=== PATIENT | male | born 1935 | race Two or more races ===

== ENCOUNTER 2019-05-14 22:17 | Inpatient (IN) | payer MEDICARE ==
[~2019-05-14] VITALS: Ht 177.8 cm; Wt 47.6 kg
--- NOTE | 2019-05-14 22:35 | NUR ---
ALISON RA .C/O "DESATTING AT SNF" PT NOTED DNR. FAMILY AT BEDSIDE. VSS AT THIS TIME.
[2019-05-14 22:56] LABS: BASOPHILS # (AUTO) 0.1 /CMM (0.0-0.2); BASOPHILS % (AUTO) 0.8 % (0.0-2.0); EOSINOPHILS % (AUTO) 0.2 % (0.0-6.0); HEMATOCRIT 25 % (39-51); HEMOGLOBIN 8.1 g/dL (13.5-17.5); LYMPHOCYTES # (AUTO) 0.5 /CMM (0.8-4.8); LYMPHOCYTES % (AUTO) 3.1 % (20.0-44.0); MEAN CORPUSCULAR HGB CONC 33 g/dl (31.0-36.0); MEAN CORPUSCULAR VOLUME 87 fL (80-96); MONOCYTES # (AUTO) 0.9 /CMM (0.1-1.30); MONOCYTES % (AUTO) 6.1 % (2.0-12.0); NEUTROPHILS # (AUTO) 13.8 /CMM (1.8-8.9); NEUTROPHILS % (AUTO) 89.8 % (43.0-81.0); PLATELET COUNT (AUTO) 639 /CMM (150-450); RED BLOOD CELL COUNT(AUTO) 2.84 MIL/uL (4.5-6.0); WHITE BLOOD COUNT (AUTO) 15.4 K/uL (4.3-11.0)
[2019-05-14] MEDS ORDERED: ASPIRIN 81 MG TAB.CHEW PO ONE (23:00)
[2019-05-14] MEDS ORDERED: FUROSEMIDE 20 MG/2 ML VIAL IV ONE (23:00)
[2019-05-14] MEDS ORDERED: NTG 50 MG/D5W250 ML BOTTL 250 ML IV ONE ×2 (23:00→23:09)
[2019-05-14] MEDS ORDERED: OLANZAPINE 10 MG VIAL IM ONE ×2 (23:00→23:09)
[2019-05-14] MEDS ORDERED: IV NS 0.9% 1,000 ML BAG IV ONE (23:00)
[2019-05-14 23:07] LABS: CALCIUM, SERUM 8.8 mg/dL (8.5-10.1); CARBON DIOXIDE 25 mmol/L (21-32); CHLORIDE 106 mmol/L (98-107); CREATININE 1.9 mg/dL (0.6-1.3); GLUCOSE 152 mg/dL (74-106); SODIUM SERUM 141 mmol/L (136-145); UREA NITROGEN, BLOOD 24 mg/dL (7-18)
[2019-05-14] MEDS ORDERED: ASPIRIN EC 81 MG TABLET.DR PO ONE (23:09)
[2019-05-14] MEDS ORDERED: FUROSEMIDE 20 MG/2 ML VIAL ONE (23:09)
[2019-05-14 23:29] LABS: ALANINE AMINOTRANSFERASE 25 U/L (12-78); ALBUMIN 2.7 g/dL (3.4-5.0); ALKALINE PHOSPHATASE 92 U/L (46-116); ASPARTATE AMINOTRANSFERASE 30 U/L (15-37); B-TYPE NATRIURETIC PEPTIDE 14645 PG/ML (0-125); BILIRUBIN,DIRECT 0.1 mg/dL (0.0-0.2); BILIRUBIN,TOTAL 0.3 mg/dL (0.2-1.0); TOTAL PROTEIN, SERUM 6.7 g/dL (6.4-8.2)
[2019-05-14 23:49] LABS: D-DIMER 10.34 mg/L(FEU (0.17-0.50)
--- NOTE | 2019-05-15 | NUR ---
BLADDER IRRIGATED W/NORMAL SALINE PER ORDER. INITIAL IRRIGATION YIELD DARK RED DRAINAGE. AFTER ANOTHER 240ML. YIELD BRIGHT PINK. AWARE.
[2019-05-15] MEDS ORDERED: ONDANSETRON HCL/PF 4 MG/2 ML VIAL IVP PRN (00:30)
[2019-05-15] MEDS ORDERED: MAGNESIUM HYDROXIDE 30 ML UDC PO PRN ×2 (00:30→11:00)
[2019-05-15] MEDS ORDERED: MAG HYDROX/AL HYDROX/SIMETH 30 ML UDC PO PRN (00:30)
[2019-05-15] MEDS ORDERED: Z GUARD REMEDY 2 OZ OINT TP PRN (00:30)
[2019-05-15] MEDS ORDERED: ACETAMINOPHEN 325 MG TABLET PO PRN ×2 (00:30→11:00)
--- NOTE | 2019-05-15 00:39 | NUR ---
REPORT GIVEN TO FELIPA LEON.
[2019-05-15 01:00] VITALS: BP 141/48
--- NOTE | 2019-05-15 01:00 | NUR ---
CORPORATE BUYERMANAGER SPECIALTY NOTE RECEIVED PATIENT VIA GURNEY. PATIENT TRANSFERRED TO BED. A/O X1. TOLERATING ROOM AIR AT THIS TIME. RESPIRATIONS ARE EVEN AND UNLABORED. NO SOB NOTED. DENIES PAIN AT THIS TIME EXTERNAL TELE MONITOR READS SR WITH INVERTED T WAVES HR 81. IN NO APPARENT DISTRESS AT THIS TIME. IV ACCESS IN LEFT BICEP #20 PATENT AND SALINE LOCKED. PARKINSON CATHETER IS PRESENT, DRAINING TO GRAVITY, URINE IS DARK RED AND BLOODY. INATAL PHYSICAL ASSESSMENT COMPLETED AT THIS TIME. SKIN ASSESSMENT COMPLETED, PICTURES TAKEN AND PLACED IN CHART. BELONGINGS LIST COMPLETED BY INSIDE BARREL LATHE OPERATOR. ROOM ORIENTATION GIVEN. BED IS LOW AND LOCKED, SIDE RAILS UP X3, HOB ELEVATED 30 DEGREES. CALL LIGHT WITHIN REACH, WILL CONTINUE TO MONITOR
--- NOTE | 2019-05-15 01:20 | NUR ---
B OPERATOR NOTE RECEIVED A CALL FROM AMADOR IN LAB. CRITICAL LAB REPORTED, LACTIC ACID 3.0. LAB READ BACK, CONFIRMED, NOTED. WILL NOTIFY
--- NOTE | 2019-05-15 01:28 | NUR ---
COMBINER OPERATOR NOTE MD AWARE OF CRITICAL LAB. TELEPHONE ORDER: 500 NS BOLUS, STAT LACTIC ACID ONCE BAG IS COMPLETE, UPDATE ON PROCALCITONIN AND UA ONCE APPEAR ON CHART. ORDER READ BACK, CONFIRMED, NOTED, AND CARRIED OUT.
[2019-05-15] MEDS ORDERED: IV NS 0.9% 500 ML IV ONE ×2 (02:00→05:00)
--- NOTE | 2019-05-15 02:30 | NUR ---
LOCAL COMPANY FLATBED TRUCK DRIVER NOTE CALLED MD TO NOTIFY THE PATIENT IS ATTEMPTING TO PULL OUT IV LINES, PARKINSON CATHETER, PARKING SUPERVISOR CAN NOT MANAGE PATIENT. TELEPHONE ORDER: 12.5 SEROQUEL, PO, ONE TIME, NOW. ORDER READ BACK, CONFIRMED, NOTED, AND CARRIED OUT
[2019-05-15] MEDS ORDERED: QUETIAPINE FUMARATE 25 MG TABLET PO ONE (03:00)
--- NOTE | 2019-05-15 03:25 | NUR ---
UTILIZATION COORDINATOR NOTE STAT LACTIC ACID ORDER D/T COMPLETED 500ML BOLUS OF NS.
[2019-05-15 03:49] LABS: APPEARANCE,URINE Turbid (CLEAR); BILIRUBIN,URINE SMALL (NEGATIVE); BLOOD, URINE Large Ery/uL (NEGATIVE); COLOR,URINE Brown (YELLOW); KETONES,URINE Negative (NEGATIVE); LEUKOCYTE ESTERASE ,URINE Small (NEGATIVE); NITRITE, URINE Negative (NEGATIVE); PH,URINE 5.5 (5.0-8.0); PROTEIN,URINE 100 mg/dl (NEGATIVE); UGLUCOSE Negative (NEGATIVE); UROBILINOGEN,URINE 0.2 EU/dL (0.2)
[2019-05-15 04:00] VITALS: BP 124/65
--- NOTE | 2019-05-15 04:13 | NUR ---
EDGE GRINDER MACHINE NOTE CRITICAL LAB CALL FROM ROMA IN LAB. CRITICAL LAB IS LACTIC ACID 3.3. READ BACK, CONFIRMED, NOTED, WILL NOTIFY
--- NOTE | 2019-05-15 04:15 | NUR ---
CIRCULATION DIRECTOR NOTE CALLED MD TO NOTIFY OF CRITICAL LAB, PROCALCITONIN, UA, AND POLST WITH DNR STATUS. AWAITING HIS CALL
[2019-05-15 04:24] LABS: RBC,URINE TOO NUMEROUS TO COUN /HPF (0-2)
[2019-05-15 04:25] LABS: BACTERIA,URINE 3+ /HPF (None Seen); SQUAMOUS EPITHELIAL CELL,UR Few /HPF (None Seen)
--- NOTE | 2019-05-15 04:47 | NUR ---
DIRECTOR MEDICAL WRITING NOTE MD TELEPHONE ORDERED: 500 NS BOLUS, STAT LACTIC ACID ONCE NS COMPLETED AND 1:1 SITTER. ORDER READ BACK, CONFIRMED, NOTED, AND CARRIED OUT.
--- NOTE | 2019-05-15 05:56 | NUR ---
ORGAN BUILDER NOTE STAT LACTIC ACID ORDER D/T COMPLETED 500ML BOLUS OF NS.
--- NOTE | 2019-05-15 06:33 | NUR ---
PAID SEARCH ANALYST CLOSING NOTE PATIENT IN BED. A/O X1. REMAINS TOLERATING ROOM AIR. RESPIRATIONS ARE EVEN AND UNLABORED. NO SOB NOTED. NO C/O PAIN. EXTERNAL TELE MONITOR READS SR WITH INVERTED T WAVES HR 81. NO DISTRESS NOTED. IV ACCESS MAINTAINED IN LEFT BICEP #20 PATENT AND SALINE LOCKED. PARKINSON CATHETER IS PRESENT, DRAINING TO GRAVITY, URINE IS DARK RED AND BLOODY, URINE OUTPUT 600. BED IS LOW AND LOCKED, SIDE RAILS UP X3, HOB ELEVATED 30 DEGREES. SITTER AT BEDSIDE. CALL LIGHT WITHIN REACH. WILL ENDORSE TO NEXT SHIFT.
[2019-05-15 06:39] LABS: BASOPHILS # (AUTO) 0.1 /CMM (0.0-0.2); BASOPHILS % (AUTO) 0.5 % (0.0-2.0); EOSINOPHILS % (AUTO) 0.4 % (0.0-6.0); HEMATOCRIT 24 % (39-51); HEMOGLOBIN 8.1 g/dL (13.5-17.5); LYMPHOCYTES # (AUTO) 0.8 /CMM (0.8-4.8); LYMPHOCYTES % (AUTO) 5.9 % (20.0-44.0); MEAN CORPUSCULAR HGB CONC 33 g/dl (31.0-36.0); MEAN CORPUSCULAR VOLUME 87 fL (80-96); MONOCYTES # (AUTO) 1.1 /CMM (0.1-1.30); MONOCYTES % (AUTO) 8.1 % (2.0-12.0); NEUTROPHILS # (AUTO) 11.8 /CMM (1.8-8.9); NEUTROPHILS % (AUTO) 85.1 % (43.0-81.0); PLATELET COUNT (AUTO) 545 /CMM (150-450); RED BLOOD CELL COUNT(AUTO) 2.81 MIL/uL (4.5-6.0); WHITE BLOOD COUNT (AUTO) 13.9 K/uL (4.3-11.0)
[2019-05-15 06:59] LABS: CALCIUM, SERUM 8.3 mg/dL (8.5-10.1); CARBON DIOXIDE 23 mmol/L (21-32); CHLORIDE 107 mmol/L (98-107); CREATININE 1.5 mg/dL (0.6-1.3); GLUCOSE 96 mg/dL (74-106); POTASSIUM 3.7 mmol/L (3.5-5.1); SODIUM SERUM 142 mmol/L (136-145); UREA NITROGEN, BLOOD 23 mg/dL (7-18)
--- NOTE | 2019-05-15 07:28 | NUR ---
SHIRT PRESSER OPENING NOTES Patient received on room air, no sob noted, patient a/o x1 with confusion. Patient with 1:1 sitter at all time. Tabor remains with red discharge noted. Left biceps #20 SL present. Bed at the lowest setting, call light within reach, side rails up x2.
[2019-05-15 08:00] VITALS: BP 106/45
[2019-05-15] MEDS ORDERED: MULT-24 PO (08:09)
[2019-05-15] MEDS ORDERED: MELA3TAB63 PO (08:09)
[2019-05-15] MEDS ORDERED: ERGO500014 PO (08:09)
[2019-05-15] MEDS ORDERED: MAGN400O6 PO (08:09)
[2019-05-15] MEDS ORDERED: NA P133E RC (08:09)
[2019-05-15] MEDS ORDERED: TAMS-12 PO (08:09)
[2019-05-15] MEDS ORDERED: ASPI-1169 PO (08:09)
[2019-05-15] MEDS ORDERED: DOCU-141 PO (08:09)
[2019-05-15] MEDS ORDERED: ACET-868 PO (08:09)
[2019-05-15] MEDS ORDERED: BISA10SU11 RC (08:09)
[2019-05-15] MEDS ORDERED: OLAN10TA3 PO (08:09)
[2019-05-15] MEDS ORDERED: LOSA25TA27 PO (08:09)
[2019-05-15] MEDS ORDERED: METO25TA3 PO (08:09)
[2019-05-15] MEDS ORDERED: TICA90TA PO (08:09)
[2019-05-15] MEDS ORDERED: FURO-145 PO (08:09)
[2019-05-15] MEDS ORDERED: FOLI1TAB16 PO (08:09)
[2019-05-15] MEDS ORDERED: ATOR40TA PO (08:09)
[2019-05-15] MEDS ORDERED: BISACODYL SUPP (10 MG) 10 MG/SUPP.RECT SUPP.RECT RC PRN (11:00)
[2019-05-15] MEDS ORDERED: NA PHOS,M-B/NA PHOS,DI-BA 1 EA ENEMA RC PRN (11:00)
[2019-05-15] MEDS: LORAZEPAM INJ 2 MG/ML VIAL IV PRN ×2 (11:32→17:21)
[2019-05-15] MEDS: CEFTRIAXONE 1 G in IV D5W 50 ML IV SCH (12:05)
[2019-05-15] MEDS: methylPREDNISolone SOD SUCC 125 MG/2ML VIAL IV SCH ×3 (13:43→20:30)
[2019-05-15 16:00] VITALS: BP 109/57
[2019-05-15] MEDS: MULTIVITAMINS,THERAGRAN 1 UDTAB TABLET PO SCH (16:50)
[2019-05-15] MEDS: ASPIRIN 81 MG TAB.CHEW PO SCH (16:50)
[2019-05-15] MEDS: DOCUSATE SODIUM 100 MG CAPSULE PO SCH (16:51)
[2019-05-15] MEDS: TICAGRELOR 90 MG TABLET PO SCH (16:55)
--- NOTE | 2019-05-15 18:07 | NUR ---
RN MS CLOSING NOTES Patient remains on room air, no sob noted, vital signs stable and remains a/o x1. Patient asleep at this time and is easily awakened. Patient with 1;1 sitter at all time. L biceps #20 SL remains intact and unobstructed. Latest troponin at [address] Lopez aware. Zarco remains with some dark urine coming out, some bleeding from the zarco placement due to patients uneasiness at times. Bed at the lowest setting, call light within reach, side rails up x3. Will give report to NOC RN for JOURDAN bedside.
--- NOTE | 2019-05-15 18:33 | NUR ---
RN NOTES Patient trasnfered to room 320-1
--- NOTE | 2019-05-15 19:20 | NUR ---
RN medsurg opening notes Received Pt from morning nurse. Pt is alert and oriented x1. Pt is resting in bed comfortably. Respiration is normal. No SOB. No S/S of distress noted. IV sites at L bicep #20 is clean, intact, patent and SL. Tabor cath is intact, patent and draining bloody urine. MD is aware per morning nurse. Safety precautions is maintained. Bed at low position, brakes locked, side rails upX3 and call light is within reach. Sitter at the bed side. Will continue to monitor.
[2019-05-15] MEDS ORDERED: HYDROMORPHONE 1 MG/1 ML DISP.SYRIN ONE (19:55)
[2019-05-15 20:00] VITALS: BP 95/63
[2019-05-15] MEDS: OLANZAPINE 10 MG TABLET PO SCH (21:12)
[2019-05-15] MEDS: ATORVASTATIN 40 MG TABLET PO SCH (21:12)
[2019-05-15] MEDS: TAMSULOSIN 0.4 MG CAP.SR.24H PO SCH (21:12)
[2019-05-15] MEDS ORDERED: Medication Not On Formulary EA (Melatonin 3 MG) PO SCH (22:00)
[2019-05-16 06:35] LABS: BASOPHILS % (AUTO) 0.1 % (0.0-2.0); HEMATOCRIT 26 % (39-51); HEMOGLOBIN 8.9 g/dL (13.5-17.5); LYMPHOCYTES # (AUTO) 0.3 /CMM (0.8-4.8); LYMPHOCYTES % (AUTO) 4.5 % (20.0-44.0); MEAN CORPUSCULAR HGB CONC 34 g/dl (31.0-36.0); MEAN CORPUSCULAR VOLUME 86 fL (80-96); MONOCYTES # (AUTO) 0.1 /CMM (0.1-1.30); MONOCYTES % (AUTO) 1.6 % (2.0-12.0); NEUTROPHILS # (AUTO) 6.1 /CMM (1.8-8.9); NEUTROPHILS % (AUTO) 93.8 % (43.0-81.0); PLATELET COUNT (AUTO) 575 /CMM (150-450); RED BLOOD CELL COUNT(AUTO) 3.02 MIL/uL (4.5-6.0); WHITE BLOOD COUNT (AUTO) 6.5 K/uL (4.3-11.0)
--- NOTE | 2019-05-16 06:49 | NUR ---
RN medsurg closing notes Pt is alert and oriented X1. Pt is resting in bed comfortably. Respiration is normal. No SOB. No S/S of distress noted. VS is stable. IV sites L biceps #20 is clean, intact and patent. Routine meds were given as ordered. Tabor cath is intact, patent and draining bloody urine 200 ml. Kept Pt clean, dry and comfortable. All needs met and attended. Sitter at the bed side. Safety precautions is maintained. Bed at low position, HOB elevated, brakes locked, side rails upX3 and call light is within reach. Will endorse to morning nurse for JOURDAN.
[2019-05-16 06:56] LABS: ALANINE AMINOTRANSFERASE 25 U/L (12-78); ALBUMIN 2.5 g/dL (3.4-5.0); ALKALINE PHOSPHATASE 101 U/L (46-116); ASPARTATE AMINOTRANSFERASE 33 U/L (15-37); BILIRUBIN,TOTAL 0.3 mg/dL (0.2-1.0); CALCIUM, SERUM 8.4 mg/dL (8.5-10.1); CARBON DIOXIDE 24 mmol/L (21-32); CHLORIDE 108 mmol/L (98-107); CREATININE 1.4 mg/dL (0.6-1.3); GLUCOSE 115 mg/dL (74-106); MAGNESIUM 2.1 mg/dL (1.8-2.4); PHOSPHORUS 4.4 mg/dL (2.5-4.9); SODIUM SERUM 144 mmol/L (136-145); TOTAL PROTEIN, SERUM 6.5 g/dL (6.4-8.2); UREA NITROGEN, BLOOD 27 mg/dL (7-18)
[2019-05-16 07:50] LABS: CHOLESTEROL 108 mg/dL (<200); HDL CHOLESTEROL 54 mg/dL (40-60); LDL 44 mg/dL (0-99); TRIGLYCERIDES 41 mg/dL (30-150)
[2019-05-16 08:00] VITALS: BP 111/54
--- NOTE | 2019-05-16 08:03 | NUR ---
MS RN NOTES PATIENT RECEIVED RESTING INSIDE ROOM. SLEEPING, EASILY AROUSABLE THROUGH VERBAL AND TACTILE STIMULI. NO ACUTE DISTRESS. NO FACIAL GRIMACE NOTED. PARKINSON CATH IN PLACE WITH TEA COLORED URINE OUTPUT, NOTED WITH CLOTS. SAFETY PRECAUTIONS IN PLACE. SITTER AT BEDSIDE. WILL CONTINUE TO MONITOR. BED LOCKED AND IN LOW POSITION. BILATERAL UPPER SIDE RAILS UP AND LOCKED. CALL LIGHT WITHIN EASY REACH
[2019-05-16] MEDS: methylPREDNISolone SOD SUCC 125 MG/2ML VIAL IV SCH ×4 (08:45→20:56)
[2019-05-16] MEDS: FOLIC ACID 1 MG TABLET PO SCH (08:46)
[2019-05-16] MEDS: METOPROLOL SUCCINATE 25 MG TAB.SR.24H PO SCH (08:46)
[2019-05-16] MEDS ORDERED: LOSARTAN POTASSIUM 25 MG TABLET PO SCH (09:00)
[2019-05-16 09:15] LABS: THYROID STIMULATING HORMONE 3.113 uIU/mL (0.358-3.74)
[2019-05-16] MEDS: TICAGRELOR 90 MG TABLET PO SCH ×2 (09:15→17:40)
[2019-05-16] MEDS: CEFTRIAXONE 1 G in IV D5W 50 ML IV SCH (12:09)
[2019-05-16 16:00] VITALS: BP 126/75
[2019-05-16] MEDS: DOCUSATE SODIUM 100 MG CAPSULE PO SCH (17:39)
[2019-05-16] MEDS: ASPIRIN 81 MG TAB.CHEW PO SCH (17:39)
[2019-05-16] MEDS: MULTIVITAMINS,THERAGRAN 1 UDTAB TABLET PO SCH (17:39)
--- NOTE | 2019-05-16 18:32 | NUR ---
MS RN NOTES PATIENT RESTING INSIDE ROOM. AWAKE, ALERT AND ORIENTED X 1. PATIENT REORIENTED NEEDED. NO ACUTE DISTRESS. DENIES ANY PAIN OR DISCOMFORT. SITTER AT BEDSIDE. PATIENT KEPT CLEAN, DRY AND COMFORTABLE. SAFETY PRECAUTIONS IN PLACE. SR UP X 3. PARKINSON CATHETER IN PLACE WITH TEA COLORED URINE, CONTINUE TO NOTE WITH CLOTS. WILL ENDORSE TO INCOMING SHIFT FOR JOURDAN. BED LOCKED AND IN LOW POSITION. CALL LIGHT WITHIN EASY REACH
--- NOTE | 2019-05-16 19:44 | NUR ---
MS/RN OPENING NOTES RECEIVED PATIENT IN BED, HOB ELEVATED, AWAKE, ALERT X2, FAMILY AT BEDSIDE, ON ROOM AIR SATURATION AT 98%, PATIENT REQUIRE SITTER WITH IMPULSIVE BEHAVIOR, AND PULLING OUT PARKINSON, NOTED NON COMPLIANCE AND REQUIRE REMINDER AND REORIENTATION , FAMILY MADE AWARE AND DISCUSSED WITH PATIENTIMPORTANCE FOR ANY TREATMENT AND CARE, OBSERVE ABLE TO EAT TOLERATED BY BEING FED. WILL MONITOR ,, WITH SKIN TEAR ON LEFT HAND, APPLIED MEPILEX.AND OTHER SKIN ISSUES, REPOSITION, OFF LOAD EXTREMITIES. WILL MONITOR ANY S/S OF SOB, RESPIRATIONS EVEN AND UNLABORED.
[2019-05-16 20:00] VITALS: BP 108/56
[2019-05-16] MEDS: OLANZAPINE 10 MG TABLET PO SCH (21:30)
[2019-05-16] MEDS: TAMSULOSIN 0.4 MG CAP.SR.24H PO SCH (21:30)
[2019-05-16] MEDS: ATORVASTATIN 40 MG TABLET PO SCH (21:31)
--- NOTE | 2019-05-17 01:00 | NUR ---
MS/RN NOTES PATIENT REPOSITIONED AND TURNED, WOUND TREATMENT AND PHOTO DONE. ABLE TO COOPERATE.OFFERED AND PROVIDED FLUIDS.
[2019-05-17 02:05] VITALS: BP 108/56
[2019-05-17 06:25] LABS: ALANINE AMINOTRANSFERASE 28 U/L (12-78); ALBUMIN 2.3 g/dL (3.4-5.0); ALKALINE PHOSPHATASE 90 U/L (46-116); ASPARTATE AMINOTRANSFERASE 54 U/L (15-37); BILIRUBIN,TOTAL 0.3 mg/dL (0.2-1.0); CALCIUM, SERUM 8.3 mg/dL (8.5-10.1); CARBON DIOXIDE 23 mmol/L (21-32); CHLORIDE 107 mmol/L (98-107); CREATININE 1.4 mg/dL (0.6-1.3); GLUCOSE 126 mg/dL (74-106); MAGNESIUM 2.2 mg/dL (1.8-2.4); PHOSPHORUS 3.4 mg/dL (2.5-4.9); POTASSIUM 3.7 mmol/L (3.5-5.1); SODIUM SERUM 141 mmol/L (136-145); UREA NITROGEN, BLOOD 32 mg/dL (7-18)
[2019-05-17 06:29] LABS: BASOPHILS % (AUTO) 0.1 % (0.0-2.0); EOSINOPHILS % (AUTO) 0.1 % (0.0-6.0); HEMATOCRIT 26 % (39-51); HEMOGLOBIN 8.5 g/dL (13.5-17.5); LYMPHOCYTES # (AUTO) 0.4 /CMM (0.8-4.8); LYMPHOCYTES % (AUTO) 3.2 % (20.0-44.0); MEAN CORPUSCULAR HGB CONC 33 g/dl (31.0-36.0); MEAN CORPUSCULAR VOLUME 86 fL (80-96); MONOCYTES # (AUTO) 0.6 /CMM (0.1-1.30); MONOCYTES % (AUTO) 5.1 % (2.0-12.0); NEUTROPHILS # (AUTO) 10.4 /CMM (1.8-8.9); NEUTROPHILS % (AUTO) 91.5 % (43.0-81.0); PLATELET COUNT (AUTO) 624 /CMM (150-450); RED BLOOD CELL COUNT(AUTO) 3.01 MIL/uL (4.5-6.0); WHITE BLOOD COUNT (AUTO) 11.4 K/uL (4.3-11.0)
--- NOTE | 2019-05-17 06:30 | NUR ---
MS/RN NOTES PATIENT RESTING IN BED, ABLE TO SLEEP DURING THE NIGHT, MONITORED FOR ANY S/S OF CHANGES IN BEHAVIOR. TOLERATED FLUIDS AND MEDICATION BY MOUTH, OFFERED AND PROVIDED FLUIDS. BED LOCKED CALL LIGHTS WITHI REACH. ON PARKINSON CATHETER DRAINING YELLOW COLOR URINE. WOUND TREATMENT DRESSING CHANGES. WILL ENDORSE TO AM RN. RESPIRATIONS EVEN AND UNLABORED, ON ROOM AIR. IV SITE ON LEFT UPPER ARM PATENT. WILL MONITOR.
[2019-05-17 07:28] VITALS: BP 108/56
--- NOTE | 2019-05-17 07:45 | NUR ---
MS RN NOTES PATIENT RECEIVED RESTING INSIDE ROOM. SLEEPING, EASILY AROUSABLE THROUGH VERBAL AND TACTILE STIMULI. NO ACUTE DISTRESS. A/O X 1. DISORGANIZED THOUGHT PROCESS. SITTER AT BEDSIDE. PARKINSON CATH IN PLACE. SAFETY PRECAUTIONS IN PLACE. WILL CONTINUE TO MONITOR. BED LOCKED AND IN LOW POSITION. SIDE RAILS UP X 3. CALL LIGHT WITHIN EASY REACH
[2019-05-17] MEDS: FOLIC ACID 1 MG TABLET PO SCH (09:30)
[2019-05-17] MEDS: TICAGRELOR 90 MG TABLET PO SCH ×2 (09:30→17:42)
[2019-05-17] MEDS: METOPROLOL SUCCINATE 25 MG TAB.SR.24H PO SCH ×2 (09:30→17:00)
[2019-05-17] MEDS: methylPREDNISolone SOD SUCC 125 MG/2ML VIAL IV SCH ×4 (09:30→21:25)
[2019-05-17] MEDS ORDERED: ERGOCALCIFEROL (VITAMIN D 2) 50,000 UNIT CAPSULE PO SCH (11:00)
--- NOTE | 2019-05-17 11:21 | NUR ---
WOUND CARE CONSULT: PT PRESENTS CACHECTIC WITH MULTIPLE WOUNDS AND SKIN ISSUES INCLUDING DARK RAISED SKIN LESIONS TO ABDOMEN, SKIN TEARS TO LEFT HAND AND BILATERAL ARMS, INTACT DEEP TISSUE INJURY TO SACRUM, ALL PRESENT ON ADMISSION. SURGICAL CONSULT RECOMMENDED. DR HAWTHORNE NOTIFIED OF CONSULT REQUEST. DEFER TO SURGICAL TEAM FOR WOUND TREATMENT PLAN. PT HAS PARKINSON CATH. SITTER AT BEDSIDE. RECOMMENDATIONS MADE FOR SKIN PROTECTION. DISCUSSED WITH NURSING STAFF. CURRENT SWEETIE SCORE IS 14. WILL SEE PRN. CORTES IN AGREEMENT WITH PLAN OF CARE. Addendum: 05/17/19 at 1124 by PEG MEHTA WNDNU Amended: Links added. Addendum: 05/17/19 at 1126 by PEG MEHTA WNDNU DIETARY CONSULT IN PLACE.
[2019-05-17] MEDS: CEFTRIAXONE 1 G in IV D5W 50 ML IV SCH (12:11)
[2019-05-17] MEDS: DOCUSATE SODIUM 100 MG CAPSULE PO SCH (17:42)
[2019-05-17] MEDS: MULTIVITAMINS,THERAGRAN 1 UDTAB TABLET PO SCH (17:42)
[2019-05-17] MEDS: ASPIRIN 81 MG TAB.CHEW PO SCH (17:42)
--- NOTE | 2019-05-17 18:46 | NUR ---
MS RN NOTES PATIENT RESTING INSIDE ROOM. A/O X `1. NO ACUTE DISTRESS. PATIENT KEPT CLEAN, DRY AND COMFORTABLE. PATIENT REORIENTED NEEDED. MAINTAINED SAFETY PRECAUTIONS. PARKINSON CATHETER IN PLACE WITH YELLOW URINE OUTPUT ON COLLECTING BAG. WILL ENDORSE TO INCOMING SHIFT FOR JOURDAN. BED LOCKED AND IN LOW POSITION. BILATERAL UPPER SIDE RAILS UP AND LOCKED. CALL LIGHT WITHIN EASY REACH
--- NOTE | 2019-05-17 19:30 | NUR ---
MS RN OPENING NOTE RECEIVED PATIENT IN BED. A/O X1. TOLERATING ROOM AIR. RESPIRATIONS ARE EVEN AND UNLABORED. NO SOB NOTED. DENIES PAIN. NO APPARENT DISTRESS NOTED. IV ACCESS IN ROME #20 PATENT AND SALINE LOCKED. PARKINSON CATHETER IS PRESENT, DRAINING TO GRAVITY, URINE IS YELLOW. BED IS LOW AND LOCKED, SIDE RAILS UP X3, HOB FLAT. SITTER AT BEDSIDE. CALL LIGHT WITHIN REACH. WILL CONTINUE TO MONITOR.
[2019-05-17 20:00] VITALS: BP 122/64
[2019-05-17] MEDS: ATORVASTATIN 40 MG TABLET PO SCH (21:25)
[2019-05-17] MEDS: TAMSULOSIN 0.4 MG CAP.SR.24H PO SCH (21:25)
[2019-05-17] MEDS: OLANZAPINE 10 MG TABLET PO SCH (21:25)
--- NOTE | 2019-05-18 06:21 | NUR ---
MS RN CLOSING NOTE PATIENT IN BED. A/O X1. REMAINS TOLERATING ROOM AIR. RESPIRATIONS ARE EVEN AND UNLABORED. NO SOB NOTED THROUGHOUT SHIFT. NO C/O PAIN. NO DISTRESS NOTED. IV ACCESS MAINTAINED IN ROME #20 PATENT AND SALINE LOCKED. PARKINSON CATHETER IS MAINTAINED, DRAINING TO GRAVITY, URINE IS YELLOW OUTPUT 250ML. BED IS LOW AND LOCKED, SIDE RAILS UP X3, ELEVATED 30 DEGREES. SITTER AT BEDSIDE. CALL LIGHT WITHIN REACH. WILL ENDORSE TO NEXT SHIFT.
--- NOTE | 2019-05-18 07:40 | NUR ---
MS RN NOTES PATIENT RECEIVED RESTING INSIDE ROOM. AWAKE, ALERT AND ORIENTED X 1. PATIENT EASILY AGITATED, REORIENTED NEEDED. PARKINSON CATH IN PLACE WITH YELLOW OUTPUT NOTED ON COLLECTING BAG. IV INTACT AND IN PLACE. SAFETY PRECAUTIONS IN PLACE. WILL CONTINUE TO MONITOR. BED LOCKED AND IN LOW POSITION. BILATERAL UPPER SIDE RAILS UP AND LOCKED. CALL LIGHT WITHIN EASY REACH
[2019-05-18 08:00] VITALS: BP 95/57
[2019-05-18 09:00] VITALS: BP 95/57
[2019-05-18] MEDS: METOPROLOL SUCCINATE 25 MG TAB.SR.24H PO SCH (09:00)
[2019-05-18] MEDS: FOLIC ACID 1 MG TABLET PO SCH (09:31)
[2019-05-18] MEDS: methylPREDNISolone SOD SUCC 125 MG/2ML VIAL IV SCH ×2 (09:31→12:53)
[2019-05-18] MEDS: TICAGRELOR 90 MG TABLET PO SCH (09:31)
[2019-05-18] MEDS ORDERED: ENSURE ENLIVE CHOC 237 ML CAN PO SCH (12:00)
--- NOTE | 2019-05-18 14:14 | NUR ---
MS RN NOTES RECEIVED REPORT FROM CASE MANAGEMENT THAT PATIENT [facility] WITH P/U TIME AT 1530. PLACED CALL TO [facility] ([phone]) AND GAVE REPORT TO MARILEE LEON
--- NOTE | 2019-05-18 15:30 | NUR ---
MS RN NOTES TRANSPORTATION PRESENT AT UNIT. FAMILY ARRIVED AT UNIT AND REQUESTED TO SPEAK WITH CASE MANAGEMENT. VERBALIZED TO CASE MANAGEMENT THAT THEY DONT WANT PATIENT TO RETURN TO [facility]. TRANSPORTATION HELD. CASE MANAGEMENT TO FOLLOW-UP
--- NOTE | 2019-05-18 16:10 | NUR ---
MS RN NOTES RECEIVED CALL FROM CASE MANAGEMENT WITH REPORT THAT PATIENT HAS BEEN ACCEPTED AND WILL BE TRANSFERRED TO [facility], FAMILY AWARE AND AGREED. TRANSPORTATION TO ARRIVE AT UNIT SHORTLY. PLACED CALL TO [facility] ([phone]) AND GAVE REPORT TO CLYDE LEON
--- NOTE | 2019-05-18 16:35 | NUR ---
m/s plodder operator: discharged discharged pt to snf via ambulance in stable condition accompanied by 2 crew. [id number] left at same time. Addendum: 05/18/19 at 1721 by MENDOZA LARKIN LVN above charting error.
--- NOTE | 2019-05-18 16:40 | NUR ---
MS RN NOTES PATIENT TRANSFERRED TO [facility]. PATIENT LEFT UNIT IN STABLE CONDITION VIA AMBULANCE. NO BELONGINGS IN UNIT AND VERIFIED WITH FAMILY AT BEDSIDE. NO NEW SKIN BREAKDOWN ON DISCHARGE. IV REMOVED WITH TIP INTACT, PRESSURE DRESSING PLACED ON SITE. NO ACUTE DISTRESS. DENIES ANY PAIN OR DISCOMFORT. PARKINSON CATHETER IN PLACE WITH YELLOW URINE OUTPUT ON COLLECTING BAG. MD AWARE OF DISCHARGE
[2019-05-19] MEDS ORDERED: PRED20TA PO (09:45)
[2019-05-19] MEDS ORDERED: ASCO500T9 PO (09:45)
[2019-05-19] MEDS ORDERED: CEPH-570 PO (09:45)
[2019-05-19] MEDS ORDERED: ACET-868 PO (09:45)
[2019-05-19] MEDS ORDERED: LORA0.5T PO (09:45)
[2019-05-19] MEDS ORDERED: ZINC220C8 PO (09:45)
[2019-05-19] MEDS ORDERED: MAG30ORA PO (09:45)
== END 2019-05-18 18:00 | DRG 280 ==
LOC: EDBD 22:21 → ER 22:21 → TELE 05-15 00:43 → MED 05-15 07:59
PROVIDERS: ADMIT Nurse Practitioner Acute Care; ATTEND Nurse Practitioner Acute Care
DX: I11.0 Hypertensive heart disease with heart failure (principal); J96.01 Acute respiratory failure with hypoxia; I21.A1 Myocardial infarction type 2; E43 Unspecified severe protein-calorie malnutrition; G93.41 Metabolic encephalopathy; N17.0 Acute kidney failure with tubular necrosis; J44.1 Chronic obstructive pulmonary disease with (acute) exacerbation; E87.2 Acidosis; N39.0 Urinary tract infection, site not specified; Z68.1 Body mass index [BMI] 19.9 or less, adult; R64 Cachexia; I50.23 Acute on chronic systolic (congestive) heart failure; I25.10 Atherosclerotic heart disease of native coronary artery without angina pectoris; E78.5 Hyperlipidemia, unspecified; Z79.02 Long term (current) use of antithrombotics/antiplatelets; Z66 Do not resuscitate; I48.91 Unspecified atrial fibrillation; Z86.74 Personal history of sudden cardiac arrest; R31.9 Hematuria, unspecified; D63.8 Anemia in other chronic diseases classified elsewhere; I25.2 Old myocardial infarction; F03.90 Unspecified dementia, unspecified severity, without behavioral disturbance, psychotic disturbance, mood disturbance, and anxiety; I73.9 Peripheral vascular disease, unspecified; N40.0 Benign prostatic hyperplasia without lower urinary tract symptoms; L89.150 Pressure ulcer of sacral region, unstageable; S61.412A Laceration without foreign body of left hand, initial encounter; S51.012A Laceration without foreign body of left elbow, initial encounter; X58.XXXA Exposure to other specified factors, initial encounter; Y92.9 Unspecified place or not applicable
CPT/HCPCS: 36415; 71045-TC; 76770-TC; 80048-TC; 80053-TC; 80061-TC; 80076-TC; 81000-TC; 83605-TC; 83735-TC; 83880; 84100-TC; 84443-TC; 84484-TC; 85025-TC; 85378-TC; 85730-TC; 87040-TC; 87081-TC; 87086-TC; 93307-TC; A4217; A6253; G0378; J0696; J1170; J1940; J2060; J2930; J3490; J7040; J7050; J7060

== ENCOUNTER 2019-05-19 08:43 | Emergency (ER) | payer MEDICARE ==
[~2019-05-19] VITALS: Ht 172.7 cm; Wt 63.5 kg
[~2019-05-19 08:43] MED LIST: ACET-868 PO; ASPI-1169 PO; ATOR40TA PO; BISA10SU11 RC; DOCU-141 PO; ERGO500014 PO; FOLI1TAB16 PO; FURO-145 PO; LOSA25TA27 PO; MAGN400O6 PO; MELA3TAB63 PO; METO25TA3 PO; MULT-24 PO; NA P133E RC; OLAN10TA3 PO; TAMS-12 PO; TICA90TA PO
[2019-05-19] MEDS ORDERED: TDAP [DIPH/PERTUSSIS/TET] 0.5 ML VIAL IM ONE ×2 (09:00→09:20)
--- NOTE | 2019-05-19 09:15 | NUR ---
patient came in to the ER BIB regular ambulance, had a fall, lac on the right forehead. On room air, breathing evenly and unlabored. connected to the monitor and pulse ox. kept comfortable, will continue to monitor accordingly.
--- NOTE | 2019-05-19 09:19 | NUR ---
patient came back from ct
[2019-05-19] MEDS ORDERED: LORA0.5T PO (09:45)
[2019-05-19] MEDS ORDERED: ACET-868 PO (09:45)
[2019-05-19] MEDS ORDERED: CEPH-570 PO (09:45)
[2019-05-19] MEDS ORDERED: ASCO500T9 PO (09:45)
[2019-05-19] MEDS ORDERED: MAG30ORA PO (09:45)
[2019-05-19] MEDS ORDERED: PRED20TA PO (09:45)
[2019-05-19] MEDS ORDERED: ZINC220C8 PO (09:45)
--- NOTE | 2019-05-19 11:18 | NUR ---
[facility] ETA 1230 TRIP#[id number]
[2019-05-19 12:40] VITALS: BP 116/60
--- NOTE | 2019-05-19 12:40 | NUR ---
Patient discharged to back to [facility] in stable condition. Written and verbal after care instructions given. Patient daughter in law verbalizes understanding of instruction. Report given to Kianna LEON for angel.
== END 2019-05-19 12:40 ==
LOC: ER 08:44
DX: S01.111A Laceration without foreign body of right eyelid and periocular area, initial encounter (principal); S51.011A Laceration without foreign body of right elbow, initial encounter; S61.512A Laceration without foreign body of left wrist, initial encounter; I25.2 Old myocardial infarction; I48.91 Unspecified atrial fibrillation; I50.9 Heart failure, unspecified; F03.90 Unspecified dementia, unspecified severity, without behavioral disturbance, psychotic disturbance, mood disturbance, and anxiety; G47.00 Insomnia, unspecified; D64.9 Anemia, unspecified; Z79.899 Other long term (current) drug therapy; Z79.82 Long term (current) use of aspirin; W18.39XA Other fall on same level, initial encounter; Y93.89 Activity, other specified; Y92.89 Other specified places as the place of occurrence of the external cause; Y99.8 Other external cause status
CPT/HCPCS: 70450-TC; 90715

== ENCOUNTER 2019-07-01 06:28 | Emergency (ER) | payer MEDICARE ==
[~2019-07-01] VITALS: Ht 175.3 cm; Wt 49.4 kg
[~2019-07-01 06:28] MED LIST changes: +ASCO500T9 PO; +CEPH-570 PO; -FURO-145 PO; +LORA0.5T PO; -LOSA25TA27 PO; +MAG30ORA PO; -MELA3TAB63 PO; +PRED20TA PO; +ZINC220C8 PO
--- NOTE | 2019-07-01 07:05 | NUR ---
PT BIB RA 86 FROM [facility] FOR GROUND LEVEL FALL. PT CAME IN BY [facility]. PER EMS REPORT, PT HAD A GROUND LEVEL FALL IN WHICH PATIENT WAS SUSPECTED OF HEAD TRAUMA. UNKNOWN IF PATIENT HAD LOST CONSCIOUSNESS. PT SKIN IS INTACT. NOT IN RESPIRATORY DISTRESS. NO NOTED VISUAL INJURIES. RANGE OF MOTIONS INTACT. NO S/S OF PAIN EVIDENCE BY PATIENT IS CALM AND VITAL SIGNS ARE STABLE. CONNECTED TO MONITOR. AWAITING MD FOR EVAL.
--- NOTE | 2019-07-01 07:19 | NUR ---
REPORT RECEIVED FROM MICHEL LEON FOR JOURDAN. MAT PACKER AT BEDSIDE.
[2019-07-01 07:55] LABS: BASOPHILS # (AUTO) 0.1 /CMM (0.0-0.2); BASOPHILS % (AUTO) 1.3 % (0.0-2.0); EOSINOPHILS % (AUTO) 1.2 % (0.0-6.0); HEMATOCRIT 27 % (39-51); LYMPHOCYTES # (AUTO) 1.2 /CMM (0.8-4.8); LYMPHOCYTES % (AUTO) 16.9 % (20.0-44.0); MEAN CORPUSCULAR HGB CONC 34 g/dl (31.0-36.0); MEAN CORPUSCULAR VOLUME 89 fL (80-96); MONOCYTES # (AUTO) 0.8 /CMM (0.1-1.30); MONOCYTES % (AUTO) 12.3 % (2.0-12.0); NEUTROPHILS # (AUTO) 4.6 /CMM (1.8-8.9); NEUTROPHILS % (AUTO) 68.3 % (43.0-81.0); PLATELET COUNT (AUTO) 600 /CMM (150-450); RED BLOOD CELL COUNT(AUTO) 3.02 MIL/uL (4.5-6.0); WHITE BLOOD COUNT (AUTO) 6.8 K/uL (4.3-11.0)
[2019-07-01 07:58] LABS: CARBON DIOXIDE 25 mmol/L (21-32); CHLORIDE 108 mmol/L (98-107); GLUCOSE 93 mg/dL (74-106); POTASSIUM 4.1 mmol/L (3.5-5.1); SODIUM SERUM 141 mmol/L (136-145)
[2019-07-01 07:59] LABS: CALCIUM, SERUM 8.5 mg/dL (8.5-10.1); CREATININE 0.9 mg/dL (0.6-1.3); UREA NITROGEN, BLOOD 11 mg/dL (7-18)
--- NOTE | 2019-07-01 08:14 | NUR ---
PATIENT WHEELED OUT VIA GURNEY FOR CT SCAN
--- NOTE | 2019-07-01 08:54 | NUR ---
CALLED AND REPORT GIVEN TO KEVIN FROM [facility].
--- NOTE | 2019-07-01 08:55 | NUR ---
[facility] ETA AT 1000. PRIMARY NURSE AWARE.
--- NOTE | 2019-07-01 11:26 | NUR ---
Patient discharged to [facility] unit 41 in stable condition, patient will be brought back to [facility]. Written and verbal after care instructions given. EMT verbalizes understanding of instruction.
[2019-07-01 11:28] VITALS: BP 135/75
== END 2019-07-01 11:28 ==
LOC: ER 06:28
DX: S20.411A Abrasion of right back wall of thorax, initial encounter (principal); F03.90 Unspecified dementia, unspecified severity, without behavioral disturbance, psychotic disturbance, mood disturbance, and anxiety; R55 Syncope and collapse; J44.9 Chronic obstructive pulmonary disease, unspecified; I48.91 Unspecified atrial fibrillation; I11.0 Hypertensive heart disease with heart failure; I50.9 Heart failure, unspecified; G47.00 Insomnia, unspecified; E87.6 Hypokalemia; Z79.899 Other long term (current) drug therapy; Z79.82 Long term (current) use of aspirin; W18.39XA Other fall on same level, initial encounter; Y93.89 Activity, other specified; Y92.89 Other specified places as the place of occurrence of the external cause; Y99.8 Other external cause status
CPT/HCPCS: 36415; 70450-TC; 71045-TC; 72125-TC; 72170-TC; 80048-TC; 84484-TC; 85025-TC; 85730-TC

== ENCOUNTER 2019-07-12 02:17 | Inpatient (IN) | payer MEDICARE, OTHER ==
[~2019-07-12] VITALS: Ht 162.6 cm; Wt 45.8 kg
--- NOTE | 2019-07-12 02:25 | NUR ---
BIBA FOR C/O SOB. NO COUGH NOTED. PT IS PLACED ON A BIPAP UPON ARRIVAL. PT ALERT AND RESPONSIVE. OX1. PLACED ON A MONITOR ,
[2019-07-12 03:05] LABS: BASOPHILS % (AUTO) 0.2 % (0.0-2.0); HEMATOCRIT 35 % (39-51); LYMPHOCYTES # (AUTO) 0.3 /CMM (0.8-4.8); LYMPHOCYTES % (AUTO) 4.9 % (20.0-44.0); MEAN CORPUSCULAR HGB CONC 32 g/dl (31.0-36.0); MEAN CORPUSCULAR VOLUME 91 fL (80-96); MONOCYTES # (AUTO) 0.2 /CMM (0.1-1.30); MONOCYTES % (AUTO) 3.9 % (2.0-12.0); NEUTROPHILS # (AUTO) 4.7 /CMM (1.8-8.9); PLATELET COUNT (AUTO) 493 /CMM (150-450); RED BLOOD CELL COUNT(AUTO) 3.82 MIL/uL (4.5-6.0); WHITE BLOOD COUNT (AUTO) 5.2 K/uL (4.3-11.0)
[2019-07-12 03:11] LABS: CALCIUM, SERUM 8.7 mg/dL (8.5-10.1); CARBON DIOXIDE 20 mmol/L (21-32); CHLORIDE 110 mmol/L (98-107); CREATININE 2.3 mg/dL (0.6-1.3); GLUCOSE 107 mg/dL (74-106); POTASSIUM 4.8 mmol/L (3.5-5.1); SODIUM SERUM 146 mmol/L (136-145); UREA NITROGEN, BLOOD 41 mg/dL (7-18)
[2019-07-12 03:28] LABS: ALANINE AMINOTRANSFERASE 42 U/L (12-78); ALBUMIN 2.2 g/dL (3.4-5.0); ALKALINE PHOSPHATASE 128 U/L (46-116); ASPARTATE AMINOTRANSFERASE 58 U/L (15-37); B-TYPE NATRIURETIC PEPTIDE 8392 PG/ML (0-125); BILIRUBIN,DIRECT 0.2 mg/dL (0.0-0.2); BILIRUBIN,TOTAL 0.5 mg/dL (0.2-1.0); TOTAL PROTEIN, SERUM 6.6 g/dL (6.4-8.2)
[2019-07-12] MEDS ORDERED: ASPIRIN 300 MG/SUPP.RECT RC ONE ×2 (03:30→03:38)
[2019-07-12] MEDS ORDERED: CEFTRIAXONE 1GM BAG (ER ONLY) 50 ML IV ONE (03:43)
[2019-07-12] MEDS ORDERED: AZITHROMYCIN 500 MG VIAL ONE (03:43)
[2019-07-12] MEDS ORDERED: CEFTRIAXONE 1GM BAG (ER ONLY) 1 GM/50 ML PIGGYBACK IV ONE (04:00)
[2019-07-12] MEDS ORDERED: AZITHROMYCIN 500 MG in IV D5W 250 ML IV ONE (04:00)
--- NOTE | 2019-07-12 05:26 | NUR ---
report given to edilberto escoto [facility]
[2019-07-12] MEDS ORDERED: ACETAMINOPHEN 650 MG/SUPP.RECT RC PRN (05:30)
[2019-07-12] MEDS ORDERED: Z GUARD REMEDY 2 OZ OINT TP PRN (05:30)
[2019-07-12] MEDS ORDERED: ONDANSETRON HCL/PF 4 MG/2 ML VIAL IVP PRN (05:30)
--- NOTE | 2019-07-12 05:43 | NUR ---
PT WAS TRANSFERRED TO ROOM 103 UNDER ACLS
[2019-07-12] MEDS ORDERED: VANCOMYCIN 1 GM in IV D5W 250ml IV ONE (06:00)
[2019-07-12 06:07] VITALS: BP 97/51
[2019-07-12] MEDS ORDERED: VANCOMYCIN 1 GM VIAL ONE (06:07)
--- NOTE | 2019-07-12 06:57 | NUR ---
TD RN NOTES RECEIVED PT FROM ER NURSE. PT A/O X 1. ON BIPAP 60%, NO RESPIRATORY DISTRESS NOTED. TELE MONITOR SR 86.IV ACCESS ON LAC AND RAC G18 BOTH PATENT AND INTACT. SKIN ASSESSMENT DONE. BED IN LOW AND LOCKED POSITION. CALL LIGHT WITHIN REACH. BED ALARM ON. CALL SIDE RAILS UP X3. WILL MONITOR PT CLOSELY.
[2019-07-12] MEDS ORDERED: FEE PK DOSING 1 MIN EA MC ONE (07:52)
[2019-07-12 08:00] VITALS: BP 78/42
[2019-07-12] MEDS ORDERED: VANCOMYCIN 500 MG in IV D5W 100 ML IV PRN (08:00)
--- NOTE | 2019-07-12 08:00 | NUR ---
RN NOTES RECEIVED PATIENT ON BED A/O X1, NOT IN DISTRESS, HOB UP, ON BIPAP WITH 60% FI02, ON TELE MONITOR SR 80, WITH IV SITE ON LEFT AC 18G AND RFA 18G BOTH INTACT , FLUSHED WELL AND PATENT. NPO . KEPT CLEAN AND DRY, NEEDS ATTENDED, REPOSITIONED EVERY 2 HOURS, CALL LIGHT WITHIN REACH.
[2019-07-12] MEDS: CEFEPIME 1 GM in IV D5W 50 ML IV SCH (08:17)
[2019-07-12] MEDS ORDERED: ALBUTEROL FS 2.5 MG/0.5 ML VIAL.NEB NEB PRN (08:30)
[2019-07-12] MEDS ORDERED: CRAN450C PO (08:43)
--- NOTE | 2019-07-12 08:43 | NUR ---
RN NOTE: DR. ANDRADE WAS INFORMED OF THE PATIENT'S LACTIC ACID 8.4 AND LOW BP. MD HAS NO IV FLUID INFUSING AT THIS TIME. MD ORDERED A IV BOLUS OF 500ML X1. ORDER NOTED AND CARRIED OUT.
[2019-07-12] MEDS ORDERED: IV NS 0.9% 500 ML IV ONE (09:00)
[2019-07-12] MEDS ORDERED: IV NS 0.9% 1,000 ML IV PRN (09:22)
[2019-07-12] MEDS: methylPREDNISolone SOD SUCC 125 MG/2ML VIAL IV SCH ×4 (09:26→20:47)
[2019-07-12] MEDS ORDERED: IV NS 0.9% 1,000 ML BAG IV PRN (10:30)
[2019-07-12] MEDS: HEPARIN SODIUM, PORCINE 5000 UNITS/1 ML VIAL SQ SCH ×2 (10:38→17:52)
--- NOTE | 2019-07-12 10:38 | NUR ---
RN NOTE: SPOKE WITH DR. ANDRADE REGARDING THE PATIENT'S DIET ORDER. PER MD, KEEP PATIENT NPO. ORDER NOTED AND CARRIED OUT.
[2019-07-12 10:40] LABS: ABG BASE EXCESS -4.6 mmol/L; ABG OXYGEN SATURATION 98.9 % (92.0-98.5); ABG PCO2 32.4 mmHg (35.0-45.0); ABG PH 7.396 (7.350-7.450); ABG PO2 269.4 mmHg (75.0-100.0); AaDO2 411.2 mmHg; COHb 0.3 % (0.5-1.5); MetHb 0.8 % (0.0-1.5); O2Hb 97.8 % (94.0-97.0); SITE, ABG Left Radial
[2019-07-12] MEDS: IPRATROPIUM NEB FS 0.5 MG/2.5 ML AMPUL.NEB NEB SCH ×4 (11:11→23:14)
[2019-07-12] MEDS: ALBUTEROL HALF STRENGTH 1.25 MG/3 ML VIAL.NEB NEB SCH ×4 (11:11→23:14)
--- NOTE | 2019-07-12 11:12 | NUR ---
RN NOTE: DR. GRAFF WAS INFORMED OF THE ABG RESULT. RT HEIKE RECEIVED THE ORDER TO TITRATE THE FIO2 TO 50% AND BIPAP SETTING WAS CHANGED PER MD ORDER.
[2019-07-12 12:00] VITALS: BP 91/56
--- NOTE | 2019-07-12 14:10 | NUR ---
RN NOTE: DR. CARRILLO WAS MADE AWARE OF THE TROPONIN OF 1.590. MD INFORMED THAT PATIENT CONTINUED TO BE ON BIPAP FIO2 50%. PER MD, NO CHANGES OF ORDER.
--- NOTE | 2019-07-12 14:20 | NUR ---
RN NOTE: DR. ANDRADE ORDERED TO REPEAT TROPONIN IN 4 HRS. ORDER NOTED AND CARRIED OUT.
--- NOTE | 2019-07-12 14:22 | NUR ---
RN NOTES RECEIVED REPORT FROM LAB CRITICAL LAB VALUE OF TROPONIN 1.590 FROM ALEX (METALLURGICAL ENGINEERING TEACHER). DR. CARRILLO AND DR ANDRADE NOTIFIED, NO NEW ORDERS NOTED AND CONTINUE WITH THE CURRENT REGIMEN. PATIENT ON BED, NOT IN DISTRESS, BED ALARM IN LOCKED, SAFETY PRECAUTION OBSERVED, KEPT CLEAN AND DRY. CALL LIGHT WITHIN REACH
--- NOTE | 2019-07-12 14:30 | NUR ---
RN NOTE: PATIENT'S SON, ASHLY WAS AT THE BEDSIDE AND GAVE HIM AN UPDATE REGARDING THE PATIENT'S CURRENT CONDITION. AND HE STATED THAT HE IS NOT CHANGING THE CODE STATUS FOR THE PATIENT, PATIENT REMAINED DNR/DNI.
[2019-07-12] MEDS: IV D5/ 0.9% NACL 1,000 ML IV PRN ×2 (14:58→23:13)
[2019-07-12 16:00] VITALS: BP 99/68
--- NOTE | 2019-07-12 17:15 | NUR ---
RN NOTE: PATIENT WAS NOTED PULLING AND REMOVING THE BIPAP DESPITE HIDING THE LINES AND DISTRACTING THE PATIENT, PATIENT WAS STILL ABLE TO REMOVE THE LINES. DR. ANDRADE MADE AWARE WITH ORDERS FOR (B) MITTENS TO PREVENT PULLING OF THE BIPAP TUBING. ASHLY, SON WAS INFORMED.
[2019-07-12 17:22] LABS: ABG BASE EXCESS -5.5 mmol/L; ABG OXYGEN SATURATION 97.6 % (92.0-98.5); ABG PCO2 32.3 mmHg (35.0-45.0); ABG PH 7.382 (7.350-7.450); ABG PO2 119.4 mmHg (75.0-100.0); AaDO2 200.8 mmHg; COHb 0.3 % (0.5-1.5); MetHb 0.9 % (0.0-1.5); O2Hb 96.4 % (94.0-97.0); SITE, ABG Left Radial; VENT MODE, BG bipap 15/5 RR4 50%
--- NOTE | 2019-07-12 18:00 | NUR ---
RN NOTES PATIENT ON BED, NOT IN DISTRESS, ON BIPAP FIO2 50%. ON TELE MONITOR SR 90. CONITNUED IV FLUIDS OF D5 NS AT 125ML/HR WITH IV SITE ON LEFT AC AND RT FA, PATENT AND INTACT, FLUSHED WELL, KEPT CLEAN AND DRY, ALL NEEDS ATTENDED. REPOSITIONED EVERY 2 HOURS. BED ALARMED ON. SAFETY PRECAUTION OBSERVED. CALL LIGHT WITHIN REACH.
--- NOTE | 2019-07-12 19:50 | NUR ---
RN NOTES RECEIVED PATIENT ON BED EYES OPEN REACTIVE TO LIGHT NON VERBAL ON BIPAP 14/5 FIO2 50%. TACHYPNEIC AND TACHYCARDIC 110 PATIENT IS WARM TO TOUCH TEMPERATURE 102.5 PER PREVIOUS NURSE WARM BLANKET JUST REMOVED. COOLING MEASURES PROVIDED AND WILL WAIT FOR 30 MINUTES TO RECHECKED TEMP. TO GIVE TYLENOL SUPP. BILATERAL MITTENS IN PLACED FOR EPISODE OF PULLING OUT LINES AND MEDICAL DEVICES/LIFE SUSTAINING DEVICE. IV SITE ON LAC G 18 AND RFA G 18 RUNNING WITH D5NS @ 125 ML/HR INTACT AND PATENT. NPO AT THIS TIME, TURNED AND REPOSITIONED PATIENT FOR SKIN MGMT. WILL KEPT PT CLEAN AND DRY.
[2019-07-12 20:00] VITALS: BP 101/33
--- NOTE | 2019-07-12 20:30 | NUR ---
RN INDIA JOHNSON FROM LAB CALLED AND REPORTED CRITICAL VALUES OF TROPONIN 3.625, CALLED BARREL RACER ROSANGELA WAITING FOR CALL BACK.
--- NOTE | 2019-07-12 21:25 | NUR ---
RN NOTES NO CALL BACK YET RECEIVED CALLED AGAIN FOR THE SECOND TIME AND SPOKE TO ONCKATHLEEN ADAMES REGARDING TROPONIN LEVEL NO NEW ORDER. WILL CONTINUE TO MONITOR. PATIENT REMAINED THE SAME NO SIGNIFICANT CHANGES
--- NOTE | 2019-07-12 21:30 | NUR ---
RN NOTES RECHECKED TEMPERATURE AFTER 30 MINUTES PATIENT TEMPERATURE STILL 102.3 DEGREE [facility]. COOLING MEASURES CONTINUE OFF FROM BLANKET , PRN TYLENOL SUPP. GIVEN ORDERED REPEAT FOR AN HOUR TEMPERATURE WENT DOWN TO 99.0 DEGREE. WILL CONTINUE TO MONITOR PATIENT STARTED TO COOL DOWN. TURN AND REPOSITIONED PATIENT. WILL CLOSELY MONITOR.
--- NOTE | 2019-07-12 21:56 | NUR ---
RECEIVED PT ON BIPAP ON NOTED SETTINGS. PT IS TACHYPNEIC, DIMINISHED B/S. O2 SAT 100%. BIPAP ALARMS SET AND AUDIBLE. CONTINUE TO MONITOR. Addendum: 07/12/19 at 2159 by MICHEL LÓPEZ RT Amended: Links added.
[2019-07-13] VITALS: BP 109/69
[2019-07-13] MEDS: HEPARIN SODIUM, PORCINE 5000 UNITS/1 ML VIAL SQ SCH ×3 (02:40→17:38)
[2019-07-13] MEDS: ALBUTEROL HALF STRENGTH 1.25 MG/3 ML VIAL.NEB NEB SCH ×6 (03:16→23:40)
[2019-07-13] MEDS: IPRATROPIUM NEB FS 0.5 MG/2.5 ML AMPUL.NEB NEB SCH ×6 (03:16→23:40)
[2019-07-13 04:00] VITALS: BP 110/40
--- NOTE | 2019-07-13 06:53 | NUR ---
WOUND CARE CONSULT WOUND CARE RECEIVED CONSULT FOR SACRAL REDNESS. WOUND CARE WILL DEFER CONSULT AND TREATMENT PLAN TO PLASTIC SURGICAL TEAM WHO ARE CURRENTLY FOLLOWING THIS PATIENT. PATIENT WITH SWEETIE AT 9, ALL PRESSURE ULCER PREVENTION MEASURES ARE NOTED TO BE IN PLACE AT THIS TIME. WILL SEE PRN.
[2019-07-13 07:13] LABS: BASOPHILS % (AUTO) 0.2 % (0.0-2.0); HEMATOCRIT 29 % (39-51); HEMOGLOBIN 9.4 g/dL (13.5-17.5); LYMPHOCYTES # (AUTO) 0.3 /CMM (0.8-4.8); LYMPHOCYTES % (AUTO) 2.4 % (20.0-44.0); MEAN CORPUSCULAR HGB CONC 32 g/dl (31.0-36.0); MEAN CORPUSCULAR VOLUME 90 fL (80-96); MONOCYTES # (AUTO) 0.3 /CMM (0.1-1.30); MONOCYTES % (AUTO) 2.3 % (2.0-12.0); NEUTROPHILS # (AUTO) 12.4 /CMM (1.8-8.9); NEUTROPHILS % (AUTO) 95.1 % (43.0-81.0); PLATELET COUNT (AUTO) 331 /CMM (150-450); RED BLOOD CELL COUNT(AUTO) 3.24 MIL/uL (4.5-6.0); WHITE BLOOD COUNT (AUTO) 13.1 K/uL (4.3-11.0)
--- NOTE | 2019-07-13 07:35 | NUR ---
RN NOTES PATIENT ASLEEP WELL ON BED. CONTINUE ON BIPAP WITH SAME SETTING NO FACIAL COMPLAIN OF PAIN. AFEBRILE. TMAX 102.5 LOWEST TEMP 96.5. REMAINED SR ON MONITOR. INCONTINENT CARE RENDERED. CLOSELY MONITOR PATIENT. ENDORSED TO MORNING SHIFT TO CHANGE BED TO ISOFLEX IF NO ISOFLEX BED TO ORDER FIRST STEP PER [place]INA WOUND NURSE. PATIENT KEPT CLEAN AND DRY.
[2019-07-13 08:00] VITALS: BP 113/54
[2019-07-13 08:15] LABS: BAND % (MANUAL) 2 % (0.0-5.0); LYMPHOCYTES % (MANUAL) 5 % (16-48); MONOCYTES % (MANUAL) 16 % (0-11.0); NEUTROPHILS % (MANUAL) 77 (42-76)
[2019-07-13] MEDS: methylPREDNISolone SOD SUCC 125 MG/2ML VIAL IV SCH ×4 (08:19→21:25)
[2019-07-13] MEDS: CEFEPIME 1 GM in IV D5W 50 ML IV SCH (08:19)
[2019-07-13] MEDS: IV D5/ 0.9% NACL 1,000 ML IV PRN ×2 (08:22→19:17)
[2019-07-13] MEDS: ASPIRIN 81 MG TAB.CHEW PO SCH (09:00)
--- NOTE | 2019-07-13 09:00 | NUR ---
RN NOTES UNABLE TO GIVE ASA PO ,PATIENT REFUSED AND ORAL MEDS AND DUE TO PATIENT'S STATUS, PATIENT UNABLE TO SWALLOW AND FACIAL/ORAL AND NASAL NEEDS TO BE COVERED WITH BIPAP MASK FOR BREATHING ASSISTANCE. ABLE TO GIVE IV MEDS ORDERED. HOB UP . KEPT CLEAN AND DRY.PATIENT NOT IN DISTRESS. CALL LIGHT WITHIN REACH
[2019-07-13 09:15] LABS: ABG BASE EXCESS -6.3 mmol/L; ABG OXYGEN SATURATION 98.8 % (92.0-98.5); ABG PCO2 29.7 mmHg (35.0-45.0); ABG PH 7.396 (7.350-7.450); ABG PO2 228.9 mmHg (75.0-100.0); AaDO2 94.2 mmHg; COHb 0.3 % (0.5-1.5); MetHb 0.9 % (0.0-1.5); O2Hb 97.6 % (94.0-97.0); SITE, ABG Left Radial; VENT MODE, BG 15/5 rr4 50%
[2019-07-13 09:33] LABS: CALCIUM, SERUM 7.5 mg/dL (8.5-10.1); CARBON DIOXIDE 21 mmol/L (21-32); CHLORIDE 114 mmol/L (98-107); CREATININE 2.8 mg/dL (0.6-1.3); GLUCOSE 138 mg/dL (74-106); POTASSIUM 4.3 mmol/L (3.5-5.1); SODIUM SERUM 149 mmol/L (136-145); UREA NITROGEN, BLOOD 59 mg/dL (7-18)
[2019-07-13 09:40] LABS: ALANINE AMINOTRANSFERASE 52 U/L (12-78); ALBUMIN 1.5 g/dL (3.4-5.0); ALKALINE PHOSPHATASE 85 U/L (46-116); ASPARTATE AMINOTRANSFERASE 143 U/L (15-37); BILIRUBIN,TOTAL 0.3 mg/dL (0.2-1.0); MAGNESIUM 2.2 mg/dL (1.8-2.4); PHOSPHORUS 4.7 mg/dL (2.5-4.9)
[2019-07-13 09:57] LABS: CHOLESTEROL 61 mg/dL (<200); HDL CHOLESTEROL 49 mg/dL (40-60); LDL 8 mg/dL (0-99); TRIGLYCERIDES 19 mg/dL (30-150)
--- NOTE | 2019-07-13 10:52 | NUR ---
RN NOTES URINE COLLECTED ORDERED FOR URINALYSIS VIA STRAIGHT CATH, PT TOLERATED WELL, NOT IN DISTRESS, NO SOB, NOTED WITH YELLOW CLEAR URINE COLOR, SENT TO LAB AND NOTIFIED. PT KEPT CLEAN AND DRY. CALL LIGHT WITHIN REACH.
--- NOTE | 2019-07-13 11:30 | NUR ---
RN NOTES INSERTION OF PARKINSON CATH COMPLETED ORDERED, USING A STERILE TECHNIQUE 16 FR PARKINSON CATH WAS INSERTED WITH GOOD YELLOW URINE COLOR OUTPUT NOTED 100ML URINE NOTED, , BALLOON IN PLACE WITH 10ML STERILE WATER IN IT. KEPT CLEAN AND DRY, PATIENT TOLERATED WELL, CALL LIGHT WITHIN REACH
[2019-07-13 12:00] VITALS: BP 104/50
[2019-07-13 13:25] LABS: APPEARANCE,URINE SL CLOUDY (CLEAR); BILIRUBIN,URINE NEGATIVE (NEGATIVE); BLOOD, URINE LARGE Ery/uL (NEGATIVE); COLOR,URINE DARK YELLO (YELLOW); KETONES,URINE NEGATIVE (NEGATIVE); LEUKOCYTE ESTERASE ,URINE NEGATIVE (NEGATIVE); NITRITE, URINE NEGATIVE (NEGATIVE); PROTEIN,URINE 30 mg/dl (NEGATIVE); UGLUCOSE NEGATIVE (NEGATIVE); UROBILINOGEN,URINE 0.2 EU/dL (0.2)
[2019-07-13 13:30] LABS: BACTERIA,URINE Moderate /HPF (None Seen); SQUAMOUS EPITHELIAL CELL,UR Few /HPF (None Seen); WBC,URINE 0-2 /HPF (0-3)
[2019-07-13 13:33] LABS: CREATININE, URINE 145.4 MG/DL (30.0-125.0)
[2019-07-13 15:14] LABS: EOSINOPHIL,URINE None Seen
[2019-07-13 16:00] VITALS: BP 118/65
--- NOTE | 2019-07-13 16:15 | NUR ---
RN NOTES NOTED THAT PT TEMP WAS 94.4 VIA RECTAL THERMOMETER, PT NOT IN DISTRESS, HOB UP, OLENA HUG MACHINE BLANKET APPLIED TO PATIENT AND RECHECK TEMP AFTER, NOTED WITH 96.5 TEMP. AM CARE COMPLETED, PT KEPT CLEAN AND DRY, IV FLUSHED WELL, PATENT AND INTACT. F/C IN PLACE. BED ON LOWEST POSITION. SIDE RAILS UP. CALL LIGHT WITHIN REACH.
--- NOTE | 2019-07-13 17:27 | NUR ---
pt. placed into high flow nasal cannula @ 50% fio2 per dr. Peleg. cross on stand by @ bedside. spo2 99% HR 80 bpm Addendum: 07/13/19 at 1728 by ARNEL RIOS RT Amended: Links added.
--- NOTE | 2019-07-13 17:30 | NUR ---
RN NOTE: PATIENT WAS SWITCHED TO A HIGH FLOW OXYGEN INITIATED BY THE RT WITH FIO2 50%. PATIENT TOLERATED IT WELL AND SATURATING 100%. STEPHIE LIMON MADE AWARE.
[2019-07-13] MEDS: MUPIROCIN OINT 2% 22 GM TUBE TP SCH (17:40)
--- NOTE | 2019-07-13 18:30 | NUR ---
RN CLOSING NOTES PATIENT REMAIN STABLE, NOT IN DISTRESS, SAFETY PRECAUTION OBSERVE. KEPT CLEAN AND DRY. REPORT GIVEN TO MOLDER OFFBEARER NURSE
[2019-07-13 20:00] VITALS: BP 106/49
--- NOTE | 2019-07-13 20:31 | NUR ---
Patient resting in no acute distress.Report given to Marlen Calderon RN for continuity of care
--- NOTE | 2019-07-13 20:32 | NUR ---
NOEL RN OPENING NOTES RECEIVED PATIENT IN BED, NONVERBAL, UNABLE TO MAKE NEEDS KNOWN. PATIENT ON HI FLOW FIO2 50%, SATURATING 98% AT THE MOMENT. NO RESPIRATORY DISTRESS NOTED. ON TELE MONITOR SR WITH HR 90'S. CONTINUED IV FLUIDS OF D5NS AT 75ML/HR WITH IV SITE ON LEFT AC AND RT FA, PATENT AND INTACT, FLUSHING AND PATENT, NO INFILTRATION NOTED. PARKINSON CATH IN PLACE, DRAINING WELL. WILL REPOSITION Q2H. BILATERAL SOFT MITTENS IN PLACE FOR PT SAFETY. SAFETY PRECAUTION IN PLACE; CALL LIGHT WITHIN REACH, HOB ELEVATED, SIDE RAILS UP X2, BED LOCKED AND IN LOW POSITION. WILL CONT TO MONITOR PT CLOSELY.
[2019-07-14] VITALS (8 sets, daily range): BP systolic 102–123; BP diastolic 52–64
[2019-07-14] MEDS: HEPARIN SODIUM, PORCINE 5000 UNITS/1 ML VIAL SQ SCH ×3 (02:53→17:34)
[2019-07-14] MEDS: ALBUTEROL HALF STRENGTH 1.25 MG/3 ML VIAL.NEB NEB SCH ×5 (03:40→20:06)
[2019-07-14] MEDS: IPRATROPIUM NEB FS 0.5 MG/2.5 ML AMPUL.NEB NEB SCH ×5 (03:40→20:06)
--- NOTE | 2019-07-14 04:02 | NUR ---
NOEL RN NOTES PATIENT TEMP VIA RECTALLY 100.4; OLENA HUG TURNED OFF AND REMOVED. COOLING MEASURES IN PLACE. WILL CONT TO MONITOR PT CLOSELY.
[2019-07-14] MEDS: MUPIROCIN OINT 2% 22 GM TUBE TP SCH ×2 (04:24→17:02)
[2019-07-14] MEDS ORDERED: VANCOMYCIN 500 MG in IV D5W 100 ML IV SCH (06:00)
[2019-07-14 06:26] LABS: BASOPHILS % (AUTO) 0.1 % (0.0-2.0); HEMATOCRIT 24 % (39-51); HEMOGLOBIN 7.6 g/dL (13.5-17.5); LYMPHOCYTES # (AUTO) 0.3 /CMM (0.8-4.8); LYMPHOCYTES % (AUTO) 2.1 % (20.0-44.0); MEAN CORPUSCULAR HGB CONC 32 g/dl (31.0-36.0); MEAN CORPUSCULAR VOLUME 89 fL (80-96); MONOCYTES # (AUTO) 0.2 /CMM (0.1-1.30); MONOCYTES % (AUTO) 1.2 % (2.0-12.0); NEUTROPHILS # (AUTO) 12.1 /CMM (1.8-8.9); NEUTROPHILS % (AUTO) 96.6 % (43.0-81.0); PLATELET COUNT (AUTO) 239 /CMM (150-450); RED BLOOD CELL COUNT(AUTO) 2.65 MIL/uL (4.5-6.0); WHITE BLOOD COUNT (AUTO) 12.5 K/uL (4.3-11.0)
[2019-07-14 06:41] LABS: ALANINE AMINOTRANSFERASE 89 U/L (12-78); ALKALINE PHOSPHATASE 92 U/L (46-116); ASPARTATE AMINOTRANSFERASE 196 U/L (15-37); BILIRUBIN,TOTAL 0.3 mg/dL (0.2-1.0); CALCIUM, SERUM 7.5 mg/dL (8.5-10.1); CARBON DIOXIDE 21 mmol/L (21-32); CHLORIDE 120 mmol/L (98-107); CREATININE 2.5 mg/dL (0.6-1.3); GLUCOSE 121 mg/dL (74-106); MAGNESIUM 2.3 mg/dL (1.8-2.4); PHOSPHORUS 3.7 mg/dL (2.5-4.9); POTASSIUM 4.3 mmol/L (3.5-5.1); SODIUM SERUM 153 mmol/L (136-145); TOTAL PROTEIN, SERUM 4.7 g/dL (6.4-8.2); UREA NITROGEN, BLOOD 63 mg/dL (7-18)
[2019-07-14 06:47] LABS: ALBUMIN 1.4 g/dL (3.4-5.0)
--- NOTE | 2019-07-14 06:51 | NUR ---
NOEL RN NOTES LAB CALLED FOR CRITICAL LAB RESULT ALBUMIN 1.4; HOSPITALIST JAYE ARIAS MADE AWARE, NO NEW ORDERS NOTED. WILL CONT TO MONITOR PT CLOSELY.
--- NOTE | 2019-07-14 07:25 | NUR ---
NOEL RN CLOSING NOTES PATIENT IN BED, NONVERBAL, UNABLE TO MAKE NEEDS KNOWN. PT AFEBRILE LAST TEMP 98.9. PATIENT ON HI FLOW FIO2 50%, SATURATING 100% AT THE MOMENT. NO RESPIRATORY DISTRESS NOTED. ON TELE MONITOR SR WITH HR 70'S. CONTINUED IV FLUIDS OF D5NS AT 75ML/HR WITH IV SITE ON LEFT AC AND RT FA, PATENT AND INTACT, FLUSHING AND PATENT, NO INFILTRATION NOTED. PARKINSON CATH IN PLACE, DRAINING WELL. REPOSITIONED Q2H. BILATERAL SOFT MITTENS IN PLACE FOR PT SAFETY. SAFETY PRECAUTION IN PLACE; CALL LIGHT WITHIN REACH, HOB ELEVATED, SIDE RAILS UP X2, BED LOCKED AND IN LOW POSITION. ENDORSED TO AM RN FOR JOURDAN.
--- NOTE | 2019-07-14 07:42 | NUR ---
RN NOTE RECEIVED PATIENT IN BED WITH HOB ELEVATED. NO SOB NOTED. ON HI FLOW 50. NON VERBAL. IVF RUNNING AT 75ML/HR. PARKINSON IN PLACE. SOFT MITTEN RESTRAINTS IN PLACE. SIDE RAILS UP. BED LOCKED. CALL LIGHT WITHIN REACH, WILL MONITOR.
[2019-07-14] MEDS: CEFEPIME 1 GM in IV D5W 50 ML IV SCH (08:36)
[2019-07-14] MEDS: methylPREDNISolone SOD SUCC 125 MG/2ML VIAL IV SCH ×3 (08:37→17:04)
[2019-07-14] MEDS: ASPIRIN 81 MG TAB.CHEW PO SCH (08:37)
[2019-07-14 10:19] LABS: ABG OXYGEN SATURATION 98.2 % (92.0-98.5); ABG PCO2 29.1 mmHg (35.0-45.0); ABG PH 7.405 (7.350-7.450); ABG PO2 150.7 mmHg (75.0-100.0); AaDO2 173.1 mmHg; COHb 0.2 % (0.5-1.5); MetHb 0.8 % (0.0-1.5); O2Hb 97.2 % (94.0-97.0); SITE, ABG Right Radial; VENT MODE, BG high fow NC @ 50% fio2
--- NOTE | 2019-07-14 10:29 | NUR ---
decreased fio2 from 50% to 40% due to 150 mmhg PaO2. rn notified on changes. Addendum: 07/14/19 at 1030 by ARNEL RIOS RT Amended: Links added.
--- NOTE | 2019-07-14 11:08 | NUR ---
RN NOTE DR. GORDILLO MADE AWARE OF CURRENT HGB, SODIUM AND TROPONIN LEVEL. WITH ORDER TO HOLD HEPARIN, CHECK STOOL OB, IRON PANEL, AND TO DC CURRENT IVF AND ADMINISTER D5W 0.45% NS IV @75ML/HR. ORDER NOTED AND CARRIED OUT.
[2019-07-14] MEDS ORDERED: IV D5/0.45 NACL 1,000 ML IV PRN (11:30)
--- NOTE | 2019-07-14 12:23 | NUR ---
RN NOTE SON AT BEDSIDE, AWARE ABOUT THE PATIENT'S HGB LEVEL AND THAT MD HAS ORDERED IRON PANEL AND OB STOOL. ALSO, NA OF 153 AND IVF HAS BEEN CHANGED TO D5 HALF NS. RD TALKED TO THE SON OVER THE PHONE TO CLARIFY THE PATIENT'S HEIGHT. SON IS UPDATED ABOUT THE PATIENT'S CARE
[2019-07-14 12:24] LABS: IRON, SERUM 8 ug/dl (50-175); TOTAL IRON BINDING CAPACITY 99 ug/dl (250-450)
--- NOTE | 2019-07-14 13:15 | NUR ---
RN NOTE MONITORED PATIENT THROUGHOUT THE DAY. PATIENT IS CALM AND NOT REMOVING ANY LINES. DC'D THE RESTRAINTS ALREADY
--- NOTE | 2019-07-14 19:05 | NUR ---
RN NOTE PATIENT IN BED WITH HEAD OF BED ELEVATED. NO SOB NOTED. CURRENTLY ON HI FLOW O2 @60L WITH FIO2 40%. PARKINSON CATHETER IN PLACE. IVF RUNNING. NO SIGNS OF FISTRESS AT THIS TIME. ENDORSED.
--- NOTE | 2019-07-14 19:25 | NUR ---
NOEL/RN notes, Patient received in bed, in no acute distress at this time, breathing even and unlabored on prescribed O2 via High flow NC. Saturation 95% at this time. Patient obtunded, no facial grimacing, no S/S of pain. IV sites with no S/S of infection/ infiltration, running with fluids as order, Tabor in place, patent, draining with yellow color urine, safety maintained, bed at the lowest locked position, Bed at flanagan position. On tele monitoring with sinus rhythm rate 80, Call light within reach. Will continue to monitor as per plan of care.
--- NOTE | 2019-07-14 21:25 | NUR ---
Patient saturation noted 69% at this time on High flow O2 Via NC as ordered, Patient noted with no breathing efforts O2 sat continue to Drop, started Ambu bagging patient with O2 @ 15LPM, HR dropped to 25 at this time, Call SON Litzy Morfin, Per son do not intubate patient, or resuscitate patient, on the way to see his father. patient Heart rate, saturation continue dropping, charge nurse at bed side
--- NOTE | 2019-07-14 21:35 | NUR ---
Patient Asystole on the monitor, stopped bagging, unable to feel pulses, no vital signs, charge nurse pronounced patient at this time
--- NOTE | 2019-07-14 21:38 | NUR ---
called Jackie Grimm medical economics consultant, made aware
--- NOTE | 2019-07-14 21:40 | NUR ---
Called Son Navjot Made aware, on the way to see his father
--- NOTE | 2019-07-14 21:42 | NUR ---
Called [facility], spoke with Aura, with confirmation [id number], she said she will call back to give clearance to release body to family,
--- NOTE | 2019-07-14 21:45 | NUR ---
Postmortem care provided, body clean and dry, left in room for family see Addendum: 07/14/19 at 2343 by MERI MOSS RN left in room for family to see
--- NOTE | 2019-07-14 21:54 | NUR ---
Brian From groundman/lineman call back at this time, he said OK to release the body to family with comfirmation number [id number]
--- NOTE | 2019-07-14 22:00 | NUR ---
Son Navjot arrived at this time, denies having any mortuary arrangements for his father, Body will be sent to [facility] until son makes the arrangement,
--- NOTE | 2019-07-14 22:18 | NUR ---
sent body to mortuary with security guards .
== END 2019-07-14 21:30 | disposition expired | DRG 871 ==
LOC: ER 02:19 → TELE-TD 04:29
PROVIDERS: ADMIT Student in an Organized Health Care Education/Training Program
PROC: 5A09457 Assistance with Respiratory Ventilation, 24-96 Consecutive Hours, Continuous Positive Airway Pressure (ICD-10-PCS; principal; 2019-07-12)
DX: A41.9 Sepsis, unspecified organism (principal); J96.01 Acute respiratory failure with hypoxia; J18.9 Pneumonia, unspecified organism; N17.0 Acute kidney failure with tubular necrosis; E43 Unspecified severe protein-calorie malnutrition; I21.A1 Myocardial infarction type 2; G92 Toxic encephalopathy; D68.69 Other thrombophilia; I50.22 Chronic systolic (congestive) heart failure; E87.2 Acidosis; E87.0 Hyperosmolality and hypernatremia; R64 Cachexia; Z66 Do not resuscitate; Z51.5 Encounter for palliative care; I50.9 Heart failure, unspecified; D64.9 Anemia, unspecified; E87.6 Hypokalemia; Z79.82 Long term (current) use of aspirin; Z79.899 Other long term (current) drug therapy; I11.0 Hypertensive heart disease with heart failure; N40.0 Benign prostatic hyperplasia without lower urinary tract symptoms; I25.2 Old myocardial infarction; Z87.891 Personal history of nicotine dependence; Z87.01 Personal history of pneumonia (recurrent); Z86.74 Personal history of sudden cardiac arrest; Z79.02 Long term (current) use of antithrombotics/antiplatelets; I25.10 Atherosclerotic heart disease of native coronary artery without angina pectoris; Z74.09 Other reduced mobility; F03.90 Unspecified dementia, unspecified severity, without behavioral disturbance, psychotic disturbance, mood disturbance, and anxiety; E86.0 Dehydration; E78.5 Hyperlipidemia, unspecified; F09 Unspecified mental disorder due to known physiological condition; I48.91 Unspecified atrial fibrillation; I73.9 Peripheral vascular disease, unspecified; L89.150 Pressure ulcer of sacral region, unstageable; Y95 Nosocomial condition; J44.9 Chronic obstructive pulmonary disease, unspecified
CPT/HCPCS: 36415; 36600; 71045-TC; 76770-TC; 80048-TC; 80053-TC; 80061-TC; 80076-TC; 80202-TC; 81000-TC; 82570-TC; 82803-TC; 83540-TC; 83605-TC; 83735-TC; 83880; 84100-TC; 84155-TC; 84300-TC; 84484-TC; 85025-TC; 85730-TC; 87040-TC; 87081-TC; 87086-TC; 94760-TC; 94799-TC; G0378; J0456; J0692; J0696; J1644; J2930; J3370; J3490; J7030; J7040; J7042; J7060